=== PATIENT | female | born 1985 | race Caucasian/White ===

== ENCOUNTER 2021-11-17 09:01 | Outpatient (CLI) | payer BC, SELFPAY ==
[2021-11-17 12:25] LABS: Free T4 Free Thyroxine 0.99 ng/mL (0.78-2.19)
[2021-11-17 12:40] LABS: Thyroid Stimulating Hormone 0.888 uIU/mL (0.465-4.680)
[2021-11-20 05:24] LABS: Prolactin 6.7 ng/mL (***); Triiodothyronine T3 Free 3.5 pg/mL (2.3-4.2)
[2021-11-21 13:25] LABS: DHEA-Sulfate 288 mcg/dL (23-266)
== END 2021-11-17 09:02 | disposition home or self-care (01) ==
LOC: ANHWCLAB 09:06
PROVIDERS: Referring Provider Internal Medicine Endocrinology, Diabetes & Metabolism; Visit Provider Internal Medicine Endocrinology, Diabetes & Metabolism
DX: D35.2 Benign neoplasm of pituitary gland (principal); E05.00 Thyrotoxicosis with diffuse goiter without thyrotoxic crisis or storm; R79.89 Other specified abnormal findings of blood chemistry; E04.9 Nontoxic goiter, unspecified
CPT/HCPCS: 36415; 82627; 84146; 84439; 84443; 84481

== ENCOUNTER 2022-01-31 14:18 | Outpatient (CLI) | payer BC, SELFPAY | END 2022-01-31 14:19 | disposition home or self-care (01) | LOC: ANHSURGERY 14:23 | PROVIDERS: Visit Provider Obstetrics & Gynecology | DX: Z01.818 Encounter for other preprocedural examination (principal) | CPT/HCPCS: 36415; 86850; 86900; 86901 ==

== ENCOUNTER 2022-02-03 01:20 | Day surgery (SDC) | payer BC, SELFPAY ==
[2022-01-30 14:58] VITALS: BMI 24.2
--- NOTE | 2022-01-30 14:58 | PC.NURSE ---
Report to the Outpatient Waiting Room, entrance under the green pavilion located off [facility], at time _1000_ on date _02/03/22__. OR Time: _1200_. - You and your visitor will be asked to self-screen and do not enter if you have any COVID symptoms. - Only one visitor and NO children visitors are allowed at this time. - The patient visitor is requested to leave or wait in car when not with patient due to restrictions. - A mask is required within the hospital. Patients may have clear liquids (water, carbonated beverages, clear teas, apple juice) until 3 hours prior to surgery with a maximum of 20 ounces. - No food from midnight until time of surgery - Infants may have breast milk until 4 hours before surgery, formula 6 hours prior to surgery. - Children will be allowed to drink immediately following surgery. If applicable, please bring a bottle or sippy cup to assist with drinking. Juice, water, soda, and popsicles are readily available. For infants on formula, please bring formula the day of surgery. Pacifiers are allowed. Take the following medications with a SIP of water the morning of surgery: __none Medications to discontinue per physician __supplements or vitamins 3 days prior____ Date to take last dose Please no make-up, nail trinidadian, hairspray, perfume, deodorant, or body powder the day of surgery. No jewelry (including any body piercings) or valuables the day of surgery, leave them at home. Please take a shower or bath the night before, or the morning of, surgery with an antibacterial soap. Wear comfortable, loose fitting clothing. Children are encouraged to wear pajamas. - Jewelry must be removed prior to entering the operating room. Rings and piercings that are not removed may be cut off. - The hospital will not accept responsibility for valuables. - Please leave all valuables, including medications, at home the day of surgery. If you are going home after surgery, a licensed funeral driver must drive you home. - NO public transportation without another adult. - We recommend that an adult stay with you for 24 hours following discharge. - We also recommend that you do not drive, make important decision, drink alcoholic beverages, or take any drugs that were not prescribed by your health care provider for at least 24 hours after your discharge time. For Pediatric surgeries, we recommend two adults accompany the child home (only one inside the building at this time). Follow any additional instructions given to you from your surgeon. If you or anyone in your household have experienced Covid symptoms in the past week, please notify your surgeon or the nurse liaison at the phone number below for possible testing. Telephone instructions given to _patient__and asked if any additional questions and then verbalized understanding. Patient advised to call surgeon office or pre surgery nurse liaison [phone] if any additional questions.
--- NOTE | 2022-02-02 09:10 | PM.IMHP ---
H&P: HPI History of Present Illness Date/Time: 02/02/22 09:10 36-year-old 3 para 3003 female presents for definitive therapy of menometrorrhagia and dysmenorrhea. Cycles are 5-7 days 3-5 days heavy clotting cramping with severe dysmenorrhea to the point where she is missing social and work events. She has had an endometrial ablation the past which did work for period of time but is no longer relieving any of her symptomatology. She has also had a tubal ligation in the past. Presents today for hysterectomy with ovarian preservation. Chief Complaint: Menometrorrhagia/dysmenorrhea PMFSH Past Medical History Medical History History of pituitary tumor Pituitary tumor Post endometrial ablation syndrome Thyroid nodule Surgical History Surgical History History of tubal ligation Family History Family History Father Hypertension Grandparent Family history of chronic obstructive pulmonary disease Family history of pancreatic cancer Family history of malignant neoplasm of urinary bladder Social History Social History Smoking status: Unknown if ever smoked Second hand tobacco smoke exposure: No Alcohol intake: current Drinks per week: 1 Substance use: never Substance use type: does not use Additional living arrangements comments: Additional occupation/education comments: director Gender identity (if verbalized by the patient): Female Sexual Orientation (if Verbalized by the Patient): Straight or Heterosexual Spiritual care concerns: No Meds Home Medications and Allergies Home Medications Medication Instructions Recorded Confirmed Type epinephrine 0.3 mg/0.3 mL 0.3 mg IM ONCE 05/15/19 01/30/22 History injection, auto-injector Allergies Allergy/AdvReac Type Severity Reaction Status Date / Time venom-wasp Allergy Severe Anaphylactic Verified 01/30/22 14:49 Shock Exam Const: General: cooperative, healthy appearing and comfortable Resp: Effort & Inspection: normal respiratory effort Auscultation: clear to auscultation bilaterally Cardio: Rate: regular rate Rhythm: regular rhythm GI: Inspection: normal to inspection Auscultation: normal bowel sounds : External Female Exam: normal external appearance Speculum Exam - Vagina: normal appearance of the vagina Speculum Exam - Cervix: normal appearance of the cervix Bimanual exam- vagina & uterus: enlarged (8-10 week size) Bimanual Exam- Adnexa, other: normal adnexae Assessment and Plan Assessment and plan (1) Menometrorrhagia: Code(s): N92.1 - Excessive and frequent menstruation with irregular cycle Status: Acute Assessment and Plan: Will proceed with robotically assisted total hysterectomy. With ovarian preservation. Has had a bilateral salpingectomy in the past. (2) Dysmenorrhea: Code(s): N94.6 - Dysmenorrhea, unspecified Status: Acute (3) Post endometrial ablation syndrome: Code(s): N99.85 - Post endometrial ablation syndrome Status: Acute
--- NOTE | 2022-02-02 11:45 | P.PNAN_ITS ---
Anes - Initial Pre Proc Eval Procedure: Operation Date: 02/03/22 12:00 Proposed Procedures p Robotic Assisted Total Laparoscopic Hysterectomy - Ezio Alfonso MD Date/Time: 02/02/22 11:45 Surgeon: Ezio Alfonso MD Pre Op Diagnosis: dysmenorrhea, failed ablation Patient Data Age: 36 Gender: F Height: 1.68 m Weight: 68.04 kg Allergies Allergy/AdvReac Type Severity Reaction Status Date / Time venom-wasp Allergy Severe Anaphylactic Verified 01/30/22 14:49 Shock Home Medications Medication Instructions Recorded Confirmed Type epinephrine 0.3 mg/0.3 mL 0.3 mg IM ONCE 05/15/19 01/30/22 History injection, auto-injector Patient hx anesthesia problems: none Family hx anesthesia problems: none Results Review: All pre-operative results and documents have been reviewed as part of the pre- operative evaluation. [facility] Past Medical History Medical History (Updated 02/03/22 @ 10:38 by Bennie Almeida DO) Endometriosis Graves disease resolved History of pituitary tumor removed Post endometrial ablation syndrome Thyroid nodule Surgical History Surgical History History of tubal ligation Family History Family History Father Hypertension Grandparent Family history of chronic obstructive pulmonary disease Family history of pancreatic cancer Family history of malignant neoplasm of urinary bladder Social History Social History Smoking status: Never smoker Second hand tobacco smoke exposure: No Alcohol intake: current Drinks per week: 3 Substance use: never Substance use type: does not use Living arrangements: with family Additional living arrangements comments: Additional occupation/education comments: director Gender identity (if verbalized by the patient): Female Sexual Orientation (if Verbalized by the Patient): Straight or Heterosexual Spiritual care concerns: No Anes - Eval Final PreProcedure Day of Procedure 02/02/22 11:45 Patient weight: normal Heart: regular rate and rhythm Lungs: clear to auscultation Airway: Mallampati scale class 1 Neurological: alert and oriented Last oral intake: >/= 8 hours ASA classification: II Emergent: no Anesthetic plan: proceed Anesthesia type and monitoring: general ETT and standard monitoring Results Review: All pre-operative results and documents have been reviewed as part of the pre- operative evaluation. Informed Consent: The patient's anesthetic plan and its attendant risks and benefits were discussed with the patient/family/POA. Questions were solicited and answers provided to the satisfaction of the patient/family/POA.
[2022-02-03] VITALS (9 sets, daily range): BP systolic 114–135; BP diastolic 72–85; PULSE 55–101; RESP 12–18; TEMP 36.3–37.1; O2SAT 96–100
[2022-02-03] MEDS: LACTATED RINGERS 1,000 ML 30 ML IV CONT ×2 (10:49→14:00)
[2022-02-03] MEDS: KETOROLAC 15 MG/ML VIAL (*BKC) IV PUSH (10:49)
[2022-02-03] MEDS: ACETAMINOPHEN 500 MG TABLET 1000 MG PO (10:50)
--- NOTE | 2022-02-03 11:49 | WPDHPUPDATE1 ---
History and Physical Update Update Date/Time: 02/03/22 11:49 History and Physical has been reviewed, including an updated exam of the patient. There are NO changes in the patient's condition. Risks, benefits, and alternatives have been discussed and questions answered. Patient agrees to proceed with procedure.
[2022-02-03] MEDS: ceFAZolin 2 GM/D5W 50 ML 2 GM/50 ML BAG IVPB (12:00)
--- NOTE | 2022-02-03 13:45 | P.OP_ITS ---
Procedure Note - Detailed Date of Procedure 02/03/22 Pre-op Diagnosis dysmenorrhea, failed ablation Post-op Diagnosis Same (Plus endometriosis) Procedure Performed robotic assisted laparoscopic total hysterectomy with ovarian preservation Surgeon Ezio Alfonso MD Anesthesia General Findings ovaries without abnormality. Tubes surgically absent. Uterus moderately enlarged and globular. Endometriosis noted throughout, specifically posterior cul-de-sac. Description of Procedure Patient was prepped in the usual manner for this procedure. Cervical os was placed for uterine mobility attention was placed the abdominal cavity. Abdominal trocar sites were marked and trocar sites were placed under direct visualization. Trocars were attached to the [employer] system and instruments were placed through the trocars as well. Surgeon moved to the console and initiated procedure by cauterizing cutting the round ligaments and developing the bladder flap. Utero-ovarian ligaments were cauterized and cut and the uterine vessels were then skeletonized. One suture skeletonized cauterized they were cut. Anterior cul-de-sac was entered and this was carried circumferentially around the to separate the cervix from the vaginal cuff. Uterus was delivered into the vagina. Irrigation was undertaken there was no significant bleeding on the cuff. V lock suture was then used from the right angle to the midline and left angle to the midline and running manner to approximate and rendered hemostatic the vaginal cuff. There was no bleeding and Cristian was placed empirically over this incision. Thorough evaluation of all of the incisions sites revealed excel lent hemostasis and no bleeding or oozing. At this point the gas was allowed to escape instruments removed and the incisions were approximated with 4-0 Monocryl. Patient was then sent to recovery room in stable condition. Estimated Blood Loss 100 Drains No Packing No Pathology Yes Complications No immediate complications Condition Stable [facility] Billing Surgery - Charge Forward: Surgery Billing
[2022-02-03] MEDS: fentaNYL CITRATE INJ (*CRX) 100 MCG/2 ML VIAL 25 MCG IV PUSH ×4 (14:10→14:37)
--- NOTE | 2022-02-03 15:13 | OBPPTRN ---
Patient transferred to post room #280 via bed. Oriented to unit, room, information board, admission packet and call light. Patient verbalizes understanding.
[2022-02-03] MEDS: DEXTROSE 5%/0.45% SOD CHL 1,000 ML 125 ML IV CONT (15:28)
[2022-02-03] MEDS: HYDROcodone/acetaminophen (*CRX) 5-325 MG TABLET 1 TAB PO ×2 (18:30→23:40)
[2022-02-03] MEDS: IBUPROFEN 600 MG TABLET PO (18:30)
[2022-02-04] MEDS: HYDROcodone/acetaminophen (*CRX) 5-325 MG TABLET 1 TAB PO ×2 (05:18→10:21)
[2022-02-04] MEDS: IBUPROFEN 600 MG TABLET PO (05:18)
[2022-02-04 05:20] VITALS: BP 106/61; PULSE 72; RESP 16; TEMP 36.3
[2022-02-04 05:56] LABS: Basophils Percent Auto 0.2 % (0.2-1.2); Hematocrit 34.2 % (37.0-47.0); Hemoglobin 11.4 g/dL (12.0-15.0); Immature Granulocyte Absolute 0.05 K/mm3 (0.00-0.031); Immature Granulocyte Percent A 0.4 % (0-0.5); Lymphocytes Absolute Auto 2.28 K/mm3 (0.9-3.2); Lymphocytes Percent Auto 17.3 % (18.3-44.2); Mean Corpuscular HGB Conc 33.3 g/dl (32-36); Mean Corpuscular Hemoglobin 31.2 pg (26-34); Mean Corpuscular Volume 93.7 fl (80-100); Mean Platelet Volume 9.9 fl (7.4-10.4); Monocytes Absolute Auto 1.1 K/mm3 (0.1-0.6); Monocytes Percent Auto 8.6 % (2.6-8.5); Neutrophils Absolute Auto 9.7 K/mm3 (1.3-6.7); Neutrophils Percent Auto 73.5 % (45.5-73.1); Platelet Count Result 269 k/mm3 (150-375); Red Blood Count 3.65 M/mm3 (4.2-5.4); Red Cell Distribution Width 12.4 % (11.5-14.5); White Blood Count 13.2 K/mm3 (4.5-10.0)
--- NOTE | 2022-02-04 06:43 | P.DS_ITS ---
DS: Admitting Diagnosis Discharge Date 02/04/2022 Admitting Diagnosis menometrorrhagia, dysmenorrhea with failed endometrial ablation DS: Discharge Diagnosis Discharge Diagnosis Plan discharge home today with usual discharge postop instructions. DS: Summary Hospital Course Hospital Course: 36-year-old female underwent robotic assisted hysterectomy. This is postop day 1 she is ambulating voiding tolerated regular diet on oral pain medication overall feeling well and doing well. Has no specific complaints or concerns. Does desire to go home. Time Spent with Patient Time attestation: Total time spent providing and/or coordinating discharge services: Exam Narrative: Vital signs are stable afebrile Abdomen positive bowel sounds soft nontender. Incision clean dry and intact with bandage in place. DS: Data Data Completed and Pending Pending studies at discharge: Pending at discharge 02/03/22 13:21 Surgical [PTH] Routine Labs on day of discharge: Labs from last 24 hours 02/04/22 05:21 WBC 13.2 H RBC 3.65 L Hgb 11.4 L Hct 34.2 L MCV 93.7 MCH 31.2 MCHC 33.3 RDW 12.4 Plt Count 269 MPV 9.9 Immature Gran % (Auto) 0.4 Neut % (Auto) 73.5 H Lymph % (Auto) 17.3 L [place] % (Auto) 8.6 H Eos % (Auto) 0.0 Baso % (Auto) 0.2 Lymph # (Auto) 2.28 [place] # (Auto) 1.1 H Eos # (Auto) 0.0 Baso # (Auto) 0.0 Abs Immat Gran (auto) 0.05 H Absolute Neuts (auto) 9.7 H Absolute Nucleated RBC 0.0 Nucleated RBC % 0.0 Discharge Plan Discharge Discharging Clinician: Ezio Alfonso Patient Disposition: Home, Self-Care Activity: as tolerated Diet: as tolerated Patient Instructions: Antibiotic Form Stand Alone Forms: General Discharge Information Follow-up/Referrals: Ezio Alfonso MD [Physician] - 2 Weeks Discharge Medications: New hydrocodone-acetaminophen 5-325 mg Tablet 1 tablet PO Q3H PRN (Reason: Pain Rated 5 Or Less) Qty: 20 0RF ibuprofen 600 mg Tablet 600 mg PO Q6H PRN (Reason: Cramping) Qty: 30 0RF Continued epinephrine 0.3 mg/0.3 mL auto-injector 0.3 mg IM ONCE Date of admission: 02/03/22 15:04 Primary Care Provider: PHYSICIAN,COMMERCIAL ROOFING ESTIMATOR Admitting Provider: Ezio Alfonso Attending physician on admission: Ezio Alfonso Condition: Stable
[2022-02-04 07:40] VITALS: BP 97/57; PULSE 70; RESP 16; TEMP 36.8; O2SAT 100
--- NOTE | 2022-02-04 08:13 | WPDANESPN ---
Anes - Prog Note Post-Op Date/Time: 02/04/22 08:13 Cardiovascular status: normal Respiratory status: normal Airway patency: baseline Mental status: baseline Post-Op hydration status: normal Vital Signs: Last Vital Signs Temp 97.4 F L 02/04/22 05:20 Pulse 72 02/04/22 05:20 Resp 16 02/04/22 05:20 BP 106/61 02/04/22 05:20 Pulse Ox 100 02/03/22 15:20 O2 Del Method Room Air 02/03/22 15:15 O2 Flow Rate 6 02/03/22 14:15 Pain Score (VAS): 3 I/O: Intake & Output 02/03/22 02/04/22 02/04/22 23:59 07:59 15:59 Intake Total 500 Output Total 400 Balance 100 Laboratory Tests 02/04/22 05:21 02/04/22 05:21 WBC 13.2 H RBC 3.65 L Hgb 11.4 L Hct 34.2 L MCV 93.7 MCH 31.2 MCHC 33.3 RDW 12.4 Plt Count 269 MPV 9.9 Immature Gran % (Auto) 0.4 Neut % (Auto) 73.5 H Lymph % (Auto) 17.3 L [place] % (Auto) 8.6 H Eos % (Auto) 0.0 Baso % (Auto) 0.2 Lymph # (Auto) 2.28 [place] # (Auto) 1.1 H Eos # (Auto) 0.0 Baso # (Auto) 0.0 Abs Immat Gran (auto) 0.05 H Absolute Neuts (auto) 9.7 H Absolute Nucleated RBC 0.0 Nucleated RBC % 0.0 Post-procedural complaints: none Patient Feedback: Patient satisfied with anesthetic care.
== END 2022-02-04 11:11 | disposition home or self-care (01) ==
LOC: ANHSURGERY 09:55 → ANHOB2 02-04 06:46
PROVIDERS: Visit Provider Obstetrics & Gynecology
PROC: (CPT 58550; principal; 2022-02-03 12:00)
DX: N92.1 Excessive and frequent menstruation with irregular cycle (principal); N94.6 Dysmenorrhea, unspecified; N80.0 Endometriosis of uterus; N99.85 Post endometrial ablation syndrome
CPT/HCPCS: 58550; 36415; 85025; 88307; 99199; A9270; J0690; J1100; J1885; J2405; J2704; J2710; J3010; J7030; J7120

== ENCOUNTER 2024-03-13 10:38 | Outpatient (CLI) | payer BC, SELFPAY ==
--- NOTE | ~2024-03-13 | XR_ITS ---
Supine and upright views of the abdomen Clinical history: Fecal abnormality Findings: Bowel gas pattern is nonspecific. No evidence for obstruction or free air. No abnormal mass lesion or calcification is seen. Osseous structures are intact. Impression: No significant abnormality is seen. Reviewed, dictated and finalized at [facility]. Impression: No significant abnormality is seen.
== END 2024-03-13 10:39 | disposition home or self-care (01) ==
PROVIDERS: PCP Family Medicine; Visit Provider Family Medicine
DX: R19.5 Other fecal abnormalities (principal)
CPT/HCPCS: 74018

== ENCOUNTER 2025-03-16 10:20 | Outpatient (CLI) | payer BC, SELFPAY ==
--- NOTE | ~2025-03-16 | MR_ITS ---
EXAMINATION: MR pituitary wo/w con DATE: 03/16/2025 11:15 INDICATION: Pituitary tumor. TECHNIQUE: Magnetic resonance imaging (MRI) of the brain and brainstem was performed without and with 12 mL MultiHance intravenous contrast. COMPARISON: Brain MRI 03/19/2019 FINDINGS: The pituitary is normal in size with height of 7 mm. There is no intracranial hemorrhage, acute infarction, or abnormal intracranial mass lesion. The ventricles are normal in size. There is mucosal thickening in the paranasal sinuses. The orbits are normal. The mastoid air cells are normal. IMPRESSION: 1. Normal brain. Normal pituitary. Reviewed, dictated and finalized at location E.
== END 2025-03-16 10:21 | disposition home or self-care (01) ==
PROVIDERS: PCP Family Medicine; Visit Provider Internal Medicine Endocrinology, Diabetes & Metabolism
DX: D35.2 Benign neoplasm of pituitary gland (principal)
CPT/HCPCS: 70553; A9577